=== PATIENT | male | born 1965 | race Caucasian/White ===

== ENCOUNTER 2020-10-28 17:00 | Inpatient (IN) | payer OTHER ==
[2020-10-28 18:03] VITALS: BMI 23.5
[2020-10-28] MEDS ORDERED: ACETAMINOPHEN 325 MG TABLET (FP) PO PRN ×2 (18:43)
[2020-10-28] MEDS ORDERED: BISMUTH SUBSALICYLATE 524 MG/30 ML PO PRN (18:43)
[2020-10-28] MEDS ORDERED: ONDANSETRON *ODT* 4 MG TABLET SL PRN (18:43)
[2020-10-28] MEDS ORDERED: MAGNESIUM HYDROX 2400MG/30ML ORAL SUSPENSION 30 ML CUP PO PRN (18:43)
[2020-10-28] MEDS ORDERED: MENTHOL/PHENOL 1 EACH UD MM PRN (18:43)
[2020-10-28] MEDS ORDERED: MAGNESIUM CITRATE 300 ML BOTTLE PO PRN (18:43)
[2020-10-28] MEDS ORDERED: MAG HYDROX/AL HYDROX/SIMETH 30 ML UNIT-DOSE CUP PO PRN (18:43)
[2020-10-28] MEDS ORDERED: diazePAM 5 MG TABLET PO ONE (18:46)
[2020-10-28] MEDS: SULFAMETHOXAZOLE/TRIMETHOPRIM 800MG/160MG D.S. TABLET PO SCH (21:20)
[2020-10-28] MEDS: hydrOXYzine PAMOATE 25 MG CAPSULE (FP) PO PRN (21:20)
[2020-10-28] MEDS: IBUPROFEN 400 MG TABLET (FP) PO PRN (21:20)
[2020-10-28] MEDS: CEPHALEXIN MONOHYDRATE 500 MG CAPSULE (UD) PO SCH (21:20)
[2020-10-28] MEDS: METHOCARBAMOL 500 MG TABLET PO PRN (21:20)
[2020-10-28] MEDS: MELATONIN 5 MG TABLETS PO SCH (21:24)
[2020-10-28] MEDS: THIAMINE HCL 100 MG TABLET (FP) PO SCH (21:24)
[2020-10-28] MEDS: diazePAM 5 MG TABLET PO SCH (22:39)
[2020-10-29] MEDS: diazePAM 5 MG TABLET PO SCH ×4 (07:05→22:27)
[2020-10-29] MEDS: PRENATAL VITAMINS W/ FOLIC ACID TABLET (FP) PO SCH (10:25)
[2020-10-29] MEDS: SULFAMETHOXAZOLE/TRIMETHOPRIM 800MG/160MG D.S. TABLET PO SCH ×2 (10:25→22:26)
[2020-10-29] MEDS: amLODIPine BESYLATE 5 MG TABLET (FP) PO SCH (10:25)
[2020-10-29] MEDS: CEPHALEXIN MONOHYDRATE 500 MG CAPSULE (UD) PO SCH ×4 (10:26→22:26)
[2020-10-29] MEDS: ESCITALOPRAM OXALATE 10 MG TABLET PO SCH (10:27)
[2020-10-29] MEDS: IBUPROFEN 400 MG TABLET (FP) PO PRN ×2 (10:30→22:26)
[2020-10-29 10:44] LABS: HEMOGLOBIN 14.5 GM/dL (11.7-16.9); MCH 31.7 pg (25.7-33.7); MCHC 34.6 g/dl (32.0-35.9); MEAN CELL VOLUME 91.6 fl (80-96); MEAN PLT VOLUME 8.4 fl (7.5-11.1); PLATELET COUNT 322 10^3/uL (134-434); RBC 4.59 M/mm3 (4.00-5.60); RDW 14.4 % (11.9-15.9); WHITE BLOOD COUNT 9.2 K/mm3 (4.0-10.0)
[2020-10-29 10:58] LABS: ALBUMIN 3.4 g/dl (3.4-5.0); BLOOD UREA NITROGEN 12.5 mg/dL (7-18); CALCIUM 9.1 mg/dL (8.5-10.1)
[2020-10-29 11:01] LABS: BILIRUBIN,TOTAL 0.2 mg/dL (0.2-1); TOT PROT 6.2 g/dl (6.4-8.2)
[2020-10-29 11:02] LABS: CREATININE 0.9 mg/dL (0.55-1.3)
[2020-10-29] MEDS: NICOTINE 10 MG CARTRIDGE (INHALER) IH SCH (19:38)
[2020-10-29] MEDS: MELATONIN 5 MG TABLETS PO SCH (22:26)
[2020-10-29] MEDS: THIAMINE HCL 100 MG TABLET (FP) PO SCH (22:27)
[2020-10-29] MEDS: METHOCARBAMOL 500 MG TABLET PO PRN (22:28)
[2020-10-29] MEDS: hydrOXYzine PAMOATE 25 MG CAPSULE (FP) PO PRN (22:28)
[2020-10-30] MEDS: diazePAM 5 MG TABLET PO SCH ×3 (06:42→23:10)
[2020-10-30] MEDS: SULFAMETHOXAZOLE/TRIMETHOPRIM 800MG/160MG D.S. TABLET PO SCH ×2 (10:17→23:10)
[2020-10-30] MEDS: CEPHALEXIN MONOHYDRATE 500 MG CAPSULE (UD) PO SCH ×4 (10:17→23:10)
[2020-10-30] MEDS: NICOTINE 10 MG CARTRIDGE (INHALER) IH SCH (10:17)
[2020-10-30] MEDS: ESCITALOPRAM OXALATE 10 MG TABLET PO SCH (10:17)
[2020-10-30] MEDS: amLODIPine BESYLATE 5 MG TABLET (FP) PO SCH (10:17)
[2020-10-30] MEDS: PRENATAL VITAMINS W/ FOLIC ACID TABLET (FP) PO SCH (10:17)
[2020-10-30] MEDS: diazePAM 5 MG TABLET PO PRN (10:18)
[2020-10-30] MEDS: IBUPROFEN 400 MG TABLET (FP) PO PRN (17:40)
[2020-10-30] MEDS: METHOCARBAMOL 500 MG TABLET PO PRN (17:41)
[2020-10-30] MEDS: hydrOXYzine PAMOATE 25 MG CAPSULE (FP) PO PRN (17:42)
[2020-10-30] MEDS ORDERED: ALBUTEROL SO4 HFA INHALER IH PRN (19:38)
[2020-10-30] MEDS ORDERED: NICOTINE POLACRILEX 2 MG GUM BUC PRN (19:38)
[2020-10-30] MEDS: LIDOCAINE 5% TOPICAL PATCH TP SCH (20:07)
[2020-10-30] MEDS: NICOTINE 14 MG/24 HOURS TOPICAL PATCH TD SCH (22:02)
[2020-10-30] MEDS: MELATONIN 5 MG TABLETS PO SCH (23:10)
[2020-10-30] MEDS: CYCLOBENZAPRINE HCL 10 MG TABLET (FP) PO SCH (23:10)
[2020-10-30] MEDS: THIAMINE HCL 100 MG TABLET (FP) PO SCH (23:10)
[2020-10-30] MEDS: LIDOCAINE PATCH REMOVAL MC SCH (23:10)
[2020-10-31] MEDS: CYCLOBENZAPRINE HCL 10 MG TABLET (FP) PO SCH ×3 (05:57→22:20)
[2020-10-31] MEDS: diazePAM 5 MG TABLET PO SCH ×2 (05:57→17:35)
[2020-10-31] MEDS: SULFAMETHOXAZOLE/TRIMETHOPRIM 800MG/160MG D.S. TABLET PO SCH ×2 (10:29→22:20)
[2020-10-31] MEDS: PRENATAL VITAMINS W/ FOLIC ACID TABLET (FP) PO SCH (10:29)
[2020-10-31] MEDS: CEPHALEXIN MONOHYDRATE 500 MG CAPSULE (UD) PO SCH ×4 (10:29→22:20)
[2020-10-31] MEDS ORDERED: NAPROXEN 250 MG TABLET PO PRN (10:29)
[2020-10-31] MEDS: amLODIPine BESYLATE 5 MG TABLET (FP) PO SCH (10:29)
[2020-10-31] MEDS: ESCITALOPRAM OXALATE 10 MG TABLET PO SCH (10:29)
[2020-10-31] MEDS: LIDOCAINE 5% TOPICAL PATCH TP SCH (10:30)
[2020-10-31] MEDS: diazePAM 5 MG TABLET PO PRN (10:33)
[2020-10-31] MEDS: hydrOXYzine PAMOATE 25 MG CAPSULE (FP) PO PRN ×3 (10:34→22:20)
[2020-10-31] MEDS: NICOTINE 14 MG/24 HOURS TOPICAL PATCH TD SCH (11:36)
[2020-10-31] MEDS: THIAMINE HCL 100 MG TABLET (FP) PO SCH (22:20)
[2020-10-31] MEDS: MELATONIN 5 MG TABLETS PO SCH (22:56)
[2020-10-31] MEDS: LIDOCAINE PATCH REMOVAL MC SCH (22:57)
[2020-11-01] MEDS ORDERED: diazePAM 5 MG TABLET PO ONE (06:00)
[2020-11-01] MEDS: CYCLOBENZAPRINE HCL 10 MG TABLET (FP) PO SCH (07:07)
[2020-11-01] MEDS: ESCITALOPRAM OXALATE 10 MG TABLET PO SCH (10:17)
[2020-11-01] MEDS: PRENATAL VITAMINS W/ FOLIC ACID TABLET (FP) PO SCH (10:17)
[2020-11-01] MEDS: amLODIPine BESYLATE 5 MG TABLET (FP) PO SCH (10:17)
[2020-11-01] MEDS: LIDOCAINE 5% TOPICAL PATCH TP SCH (10:17)
[2020-11-01] MEDS: CEPHALEXIN MONOHYDRATE 500 MG CAPSULE (UD) PO SCH (10:17)
[2020-11-01] MEDS: SULFAMETHOXAZOLE/TRIMETHOPRIM 800MG/160MG D.S. TABLET PO SCH (10:17)
[2020-11-01] MEDS: NICOTINE 14 MG/24 HOURS TOPICAL PATCH TD SCH (10:19)
[2020-11-01] MEDS: hydrOXYzine PAMOATE 25 MG CAPSULE (FP) PO PRN (10:20)
[2020-11-01 10:39] VITALS: BP 121/76; PULSE 80; TEMP 98
== END 2020-11-01 12:28 | disposition other institution (70) | DRG 774 ==
LOC: YASAS 17:00 → Y3N 18:54
PROVIDERS: ADMIT Allergy & Immunology; ATTEND Allergy & Immunology
PROC: HZ2ZZZZ Detoxification Services for Substance Abuse Treatment (ICD-10-PCS; principal; 2020-10-28)
DX: F10.230 Alcohol dependence with withdrawal, uncomplicated (principal); F14.20 Cocaine dependence, uncomplicated; F13.20 Sedative, hypnotic or anxiolytic dependence, uncomplicated; F17.210 Nicotine dependence, cigarettes, uncomplicated; F19.24 Other psychoactive substance dependence with psychoactive substance-induced mood disorder; F32.9 Major depressive disorder, single episode, unspecified; I10 Essential (primary) hypertension; M54.5 Low back pain; G89.29 Other chronic pain; Z56.0 Unemployment, unspecified; Z59.0 Homelessness
CPT/HCPCS: 36415; 80053; 85027; 86780; C9803; U0003; U0005

== ENCOUNTER 2020-11-01 12:36 | Inpatient (IN) | payer OTHER ==
[2020-11-01] MEDS ORDERED: P-EPHED 60MG/TRIPROLIDI 2.5MG TABLET PO PRN (14:09)
[2020-11-01] MEDS ORDERED: MAGNESIUM HYDROX 2400MG/30ML ORAL SUSPENSION 30 ML CUP PO PRN (14:09)
[2020-11-01] MEDS ORDERED: LOPERAMIDE HCL 2 MG CAPSULE PO PRN (14:09)
[2020-11-01] MEDS ORDERED: guaiFENesin 200 MG/10 ML 10 ML UNIT-DOSE CUPS PO PRN (14:09)
[2020-11-01] MEDS ORDERED: MENTHOL/PHENOL 1 EACH UD MM PRN (14:09)
[2020-11-01] MEDS ORDERED: MAGNESIUM CITRATE 300 ML BOTTLE PO PRN (14:09)
[2020-11-01] MEDS: NICOTINE 10 MG CARTRIDGE (INHALER) IH PRN (14:30)
[2020-11-01] MEDS: ACETAMINOPHEN 325 MG TABLET (FP) PO PRN (15:56)
[2020-11-01] MEDS: hydrOXYzine PAMOATE 25 MG CAPSULE (FP) PO PRN (15:58)
[2020-11-01] MEDS: NAPROXEN 250 MG TABLET PO PRN (21:16)
[2020-11-01] MEDS: MELATONIN 5 MG TABLETS PO SCH (21:17)
[2020-11-01] MEDS: LIDOCAINE PATCH REMOVAL MC SCH (21:18)
[2020-11-01] MEDS: THIAMINE HCL 100 MG TABLET (FP) PO SCH (21:18)
[2020-11-01] MEDS ORDERED: PT OWN MED DRAWER 7, Y5N ONE (21:33)
[2020-11-01] MEDS: ALBUTEROL SO4 HFA INHALER IH PRN (22:41)
[2020-11-02] MEDS: NAPROXEN 250 MG TABLET PO PRN ×3 (01:59→21:36)
[2020-11-02] MEDS: ESCITALOPRAM OXALATE 10 MG TABLET PO SCH (09:54)
[2020-11-02] MEDS: hydrOXYzine PAMOATE 25 MG CAPSULE (FP) PO PRN ×2 (09:54→19:12)
[2020-11-02] MEDS: amLODIPine BESYLATE 5 MG TABLET (FP) PO SCH (09:54)
[2020-11-02] MEDS: ALBUTEROL SO4 HFA INHALER IH PRN (09:55)
[2020-11-02] MEDS: NICOTINE 10 MG CARTRIDGE (INHALER) IH PRN (09:55)
[2020-11-02] MEDS: NICOTINE 21 MG/24 HOURS TOPICAL PATCH TD SCH (09:56)
[2020-11-02] MEDS: LIDOCAINE 5% TOPICAL PATCH TP SCH (10:06)
[2020-11-02] MEDS: PRENATAL VITAMINS W/ FOLIC ACID TABLET (FP) PO SCH (10:07)
[2020-11-02] MEDS: ACETAMINOPHEN 325 MG TABLET (FP) PO PRN (12:48)
[2020-11-02] MEDS: CYCLOBENZAPRINE HCL 5 MG TABLET PO PRN (14:44)
[2020-11-02] MEDS: MELATONIN 5 MG TABLETS PO SCH (21:33)
[2020-11-02] MEDS: THIAMINE HCL 100 MG TABLET (FP) PO SCH (21:34)
[2020-11-02] MEDS ORDERED: PT OWN MED DRAWER 7, Y5N ONE (21:36)
[2020-11-02] MEDS: LIDOCAINE PATCH REMOVAL MC SCH (21:37)
[2020-11-03] MEDS ORDERED: PT OWN MED DRAWER 7, Y5N ONE ×3 (08:51→21:13)
[2020-11-03] MEDS: PRENATAL VITAMINS W/ FOLIC ACID TABLET (FP) PO SCH (10:02)
[2020-11-03] MEDS: NAPROXEN 250 MG TABLET PO PRN (10:02)
[2020-11-03] MEDS: ESCITALOPRAM OXALATE 10 MG TABLET PO SCH (10:02)
[2020-11-03] MEDS: CYCLOBENZAPRINE HCL 5 MG TABLET PO PRN ×2 (10:02→21:13)
[2020-11-03] MEDS: amLODIPine BESYLATE 5 MG TABLET (FP) PO SCH (10:03)
[2020-11-03] MEDS: NICOTINE 21 MG/24 HOURS TOPICAL PATCH TD SCH (10:04)
[2020-11-03] MEDS: LIDOCAINE 5% TOPICAL PATCH TP SCH (10:04)
[2020-11-03] MEDS: NICOTINE 10 MG CARTRIDGE (INHALER) IH PRN (10:06)
[2020-11-03] MEDS: GABAPENTIN 300 MG CAPSULE PO SCH ×2 (14:11→21:08)
[2020-11-03] MEDS: CEPHALEXIN MONOHYDRATE 500 MG CAPSULE (UD) PO SCH ×3 (14:11→23:41)
[2020-11-03] MEDS: ACETAMINOPHEN 325 MG TABLET (FP) PO PRN (15:55)
[2020-11-03] MEDS: THIAMINE HCL 100 MG TABLET (FP) PO SCH (21:08)
[2020-11-03] MEDS: MELATONIN 5 MG TABLETS PO SCH (21:08)
[2020-11-03] MEDS: hydrOXYzine PAMOATE 25 MG CAPSULE (FP) PO PRN (21:09)
[2020-11-03] MEDS: LIDOCAINE PATCH REMOVAL MC SCH (21:14)
[2020-11-04] MEDS: CEPHALEXIN MONOHYDRATE 500 MG CAPSULE (UD) PO SCH ×4 (06:32→23:10)
[2020-11-04] MEDS: GABAPENTIN 300 MG CAPSULE PO SCH ×3 (06:32→21:37)
[2020-11-04] MEDS: CYCLOBENZAPRINE HCL 5 MG TABLET PO PRN ×4 (06:54→21:37)
[2020-11-04] MEDS: NICOTINE 21 MG/24 HOURS TOPICAL PATCH TD SCH (10:17)
[2020-11-04] MEDS: amLODIPine BESYLATE 5 MG TABLET (FP) PO SCH (10:17)
[2020-11-04] MEDS: ESCITALOPRAM OXALATE 10 MG TABLET PO SCH (10:17)
[2020-11-04] MEDS: NAPROXEN 250 MG TABLET PO PRN (10:17)
[2020-11-04] MEDS: PRENATAL VITAMINS W/ FOLIC ACID TABLET (FP) PO SCH (10:17)
[2020-11-04] MEDS: NICOTINE 10 MG CARTRIDGE (INHALER) IH PRN ×2 (10:18→18:41)
[2020-11-04] MEDS: LIDOCAINE 5% TOPICAL PATCH TP SCH ×2 (10:19→10:55)
[2020-11-04] MEDS: MELATONIN 5 MG TABLETS PO SCH (21:37)
[2020-11-04] MEDS: THIAMINE HCL 100 MG TABLET (FP) PO SCH (21:37)
[2020-11-04] MEDS: ALBUTEROL SO4 HFA INHALER IH PRN (21:38)
[2020-11-04] MEDS: LIDOCAINE PATCH REMOVAL MC SCH (21:38)
[2020-11-04] MEDS: SUVOREXANT 10 MG TABLET PO PRN (21:38)
[2020-11-05] MEDS: GABAPENTIN 300 MG CAPSULE PO SCH ×3 (06:41→21:04)
[2020-11-05] MEDS: CYCLOBENZAPRINE HCL 5 MG TABLET PO PRN ×2 (06:41→21:05)
[2020-11-05] MEDS: CEPHALEXIN MONOHYDRATE 500 MG CAPSULE (UD) PO SCH (06:41)
[2020-11-05] MEDS: ESCITALOPRAM OXALATE 10 MG TABLET PO SCH (10:02)
[2020-11-05] MEDS: LIDOCAINE 5% TOPICAL PATCH TP SCH (10:02)
[2020-11-05] MEDS: amLODIPine BESYLATE 5 MG TABLET (FP) PO SCH (10:02)
[2020-11-05] MEDS: PRENATAL VITAMINS W/ FOLIC ACID TABLET (FP) PO SCH (10:02)
[2020-11-05] MEDS: NICOTINE 21 MG/24 HOURS TOPICAL PATCH TD SCH (10:02)
[2020-11-05] MEDS: NAPROXEN 250 MG TABLET PO PRN (10:04)
[2020-11-05] MEDS ORDERED: PT OWN MED DRAWER 7, Y5N ONE ×2 (10:04→14:08)
[2020-11-05] MEDS: IBUPROFEN 600 MG TABLET (FP) PO PRN ×2 (12:04→21:06)
[2020-11-05] MEDS: ALBUTEROL SO4 HFA INHALER IH PRN ×2 (14:09→21:32)
[2020-11-05] MEDS: THIAMINE HCL 100 MG TABLET (FP) PO SCH (21:04)
[2020-11-05] MEDS: MELATONIN 5 MG TABLETS PO SCH (21:04)
[2020-11-05] MEDS: SUVOREXANT 10 MG TABLET PO PRN (21:05)
[2020-11-05] MEDS: LIDOCAINE PATCH REMOVAL MC SCH (21:06)
[2020-11-06] MEDS: CYCLOBENZAPRINE HCL 5 MG TABLET PO PRN ×4 (06:24→21:24)
[2020-11-06] MEDS: GABAPENTIN 300 MG CAPSULE PO SCH ×3 (06:24→21:24)
[2020-11-06] MEDS: ESCITALOPRAM OXALATE 10 MG TABLET PO SCH (10:43)
[2020-11-06] MEDS: LIDOCAINE 5% TOPICAL PATCH TP SCH (10:43)
[2020-11-06] MEDS: ALBUTEROL SO4 HFA INHALER IH PRN ×2 (10:44→21:25)
[2020-11-06] MEDS: NICOTINE 21 MG/24 HOURS TOPICAL PATCH TD SCH (10:44)
[2020-11-06] MEDS: amLODIPine BESYLATE 5 MG TABLET (FP) PO SCH (10:44)
[2020-11-06] MEDS: PRENATAL VITAMINS W/ FOLIC ACID TABLET (FP) PO SCH (10:44)
[2020-11-06] MEDS: IBUPROFEN 600 MG TABLET (FP) PO PRN (10:47)
[2020-11-06] MEDS: ACETAMINOPHEN 325 MG TABLET (FP) PO PRN (13:45)
[2020-11-06] MEDS: NICOTINE 10 MG CARTRIDGE (INHALER) IH PRN (13:50)
[2020-11-06] MEDS: MELATONIN 5 MG TABLETS PO SCH (21:24)
[2020-11-06] MEDS: THIAMINE HCL 100 MG TABLET (FP) PO SCH (21:24)
[2020-11-06] MEDS: LIDOCAINE PATCH REMOVAL MC SCH (21:25)
[2020-11-06] MEDS: SUVOREXANT 10 MG TABLET PO PRN (21:32)
[2020-11-07] MEDS: GABAPENTIN 300 MG CAPSULE PO SCH ×3 (06:30→21:12)
[2020-11-07] MEDS ORDERED: PT OWN MED DRAWER 7, Y5N ONE (08:57)
[2020-11-07] MEDS: ESCITALOPRAM OXALATE 10 MG TABLET PO SCH (09:38)
[2020-11-07] MEDS: PRENATAL VITAMINS W/ FOLIC ACID TABLET (FP) PO SCH (09:38)
[2020-11-07] MEDS: amLODIPine BESYLATE 5 MG TABLET (FP) PO SCH (09:38)
[2020-11-07] MEDS: IBUPROFEN 600 MG TABLET (FP) PO PRN (09:40)
[2020-11-07] MEDS: LIDOCAINE 5% TOPICAL PATCH TP SCH (09:41)
[2020-11-07] MEDS: ALBUTEROL SO4 HFA INHALER IH PRN ×2 (09:42→14:15)
[2020-11-07] MEDS: NICOTINE 21 MG/24 HOURS TOPICAL PATCH TD SCH (09:42)
[2020-11-07] MEDS: NICOTINE 10 MG CARTRIDGE (INHALER) IH PRN (11:16)
[2020-11-07] MEDS: CYCLOBENZAPRINE HCL 5 MG TABLET PO PRN (14:15)
[2020-11-07] MEDS: hydrOXYzine PAMOATE 25 MG CAPSULE (FP) PO PRN (15:44)
[2020-11-07] MEDS: MAG HYDROX/AL HYDROX/SIMETH 30 ML UNIT-DOSE CUP PO PRN (20:50)
[2020-11-07] MEDS: MELATONIN 5 MG TABLETS PO SCH (21:12)
[2020-11-07] MEDS: THIAMINE HCL 100 MG TABLET (FP) PO SCH (21:12)
[2020-11-07] MEDS: SUVOREXANT 10 MG TABLET PO PRN (21:13)
[2020-11-07] MEDS: LIDOCAINE PATCH REMOVAL MC SCH (21:13)
[2020-11-08] MEDS: GABAPENTIN 300 MG CAPSULE PO SCH ×3 (06:21→21:25)
[2020-11-08] MEDS: CYCLOBENZAPRINE HCL 5 MG TABLET PO PRN ×2 (06:21→17:40)
[2020-11-08] MEDS: ESCITALOPRAM OXALATE 10 MG TABLET PO SCH (10:09)
[2020-11-08] MEDS: NICOTINE 21 MG/24 HOURS TOPICAL PATCH TD SCH (10:09)
[2020-11-08] MEDS: amLODIPine BESYLATE 5 MG TABLET (FP) PO SCH (10:09)
[2020-11-08] MEDS: LIDOCAINE 5% TOPICAL PATCH TP SCH (10:09)
[2020-11-08] MEDS: PRENATAL VITAMINS W/ FOLIC ACID TABLET (FP) PO SCH (10:09)
[2020-11-08] MEDS: IBUPROFEN 600 MG TABLET (FP) PO PRN ×2 (10:10→21:27)
[2020-11-08] MEDS: ALBUTEROL SO4 HFA INHALER IH PRN ×2 (10:11→17:41)
[2020-11-08] MEDS: NICOTINE 10 MG CARTRIDGE (INHALER) IH PRN (13:13)
[2020-11-08] MEDS: MAG HYDROX/AL HYDROX/SIMETH 30 ML UNIT-DOSE CUP PO PRN ×2 (14:45→19:50)
[2020-11-08] MEDS: ACETAMINOPHEN 325 MG TABLET (FP) PO PRN (17:40)
[2020-11-08] MEDS: THIAMINE HCL 100 MG TABLET (FP) PO SCH (21:25)
[2020-11-08] MEDS: MELATONIN 5 MG TABLETS PO SCH (21:25)
[2020-11-08] MEDS: LIDOCAINE PATCH REMOVAL MC SCH (21:26)
[2020-11-08] MEDS: SUVOREXANT 10 MG TABLET PO PRN (21:27)
[2020-11-09] MEDS: GABAPENTIN 300 MG CAPSULE PO SCH ×3 (06:57→21:17)
[2020-11-09] MEDS: CYCLOBENZAPRINE HCL 5 MG TABLET PO PRN ×2 (06:57→13:37)
[2020-11-09] MEDS: LIDOCAINE 5% TOPICAL PATCH TP SCH (10:02)
[2020-11-09] MEDS: NICOTINE 21 MG/24 HOURS TOPICAL PATCH TD SCH (10:03)
[2020-11-09] MEDS: ALBUTEROL SO4 HFA INHALER IH PRN ×3 (10:04→21:15)
[2020-11-09] MEDS: IBUPROFEN 600 MG TABLET (FP) PO PRN (10:05)
[2020-11-09] MEDS: ESCITALOPRAM OXALATE 10 MG TABLET PO SCH (10:05)
[2020-11-09] MEDS: PRENATAL VITAMINS W/ FOLIC ACID TABLET (FP) PO SCH (10:05)
[2020-11-09] MEDS: amLODIPine BESYLATE 5 MG TABLET (FP) PO SCH (10:05)
[2020-11-09] MEDS: MELATONIN 5 MG TABLETS PO SCH (21:17)
[2020-11-09] MEDS: THIAMINE HCL 100 MG TABLET (FP) PO SCH (21:17)
[2020-11-09] MEDS: LIDOCAINE PATCH REMOVAL MC SCH (21:18)
[2020-11-09] MEDS: SUVOREXANT 10 MG TABLET PO PRN (21:19)
[2020-11-10] MEDS: GABAPENTIN 300 MG CAPSULE PO SCH ×3 (06:35→21:32)
[2020-11-10] MEDS: CYCLOBENZAPRINE HCL 5 MG TABLET PO PRN ×3 (06:35→21:33)
[2020-11-10] MEDS: PRENATAL VITAMINS W/ FOLIC ACID TABLET (FP) PO SCH (10:19)
[2020-11-10] MEDS: amLODIPine BESYLATE 5 MG TABLET (FP) PO SCH (10:19)
[2020-11-10] MEDS: ESCITALOPRAM OXALATE 10 MG TABLET PO SCH (10:19)
[2020-11-10] MEDS: NICOTINE 21 MG/24 HOURS TOPICAL PATCH TD SCH (10:21)
[2020-11-10] MEDS: LIDOCAINE 5% TOPICAL PATCH TP SCH (10:21)
[2020-11-10] MEDS: NICOTINE 10 MG CARTRIDGE (INHALER) IH PRN (10:45)
[2020-11-10] MEDS: FLUTICASONE PROP 0.05% 16 GM NASAL SPRAY NS SCH (13:55)
[2020-11-10] MEDS: ALBUTEROL SO4 HFA INHALER IH PRN (17:31)
[2020-11-10] MEDS ORDERED: amLODIPine BESYLATE 5 MG TABLET (FP) PO SCH (18:00)
[2020-11-10] MEDS: THIAMINE HCL 100 MG TABLET (FP) PO SCH (21:31)
[2020-11-10] MEDS: MELATONIN 5 MG TABLETS PO SCH (21:31)
[2020-11-10] MEDS: SUVOREXANT 10 MG TABLET PO PRN (21:33)
[2020-11-10] MEDS: LIDOCAINE PATCH REMOVAL MC SCH (21:34)
[2020-11-11] MEDS: GABAPENTIN 300 MG CAPSULE PO SCH ×3 (06:40→21:10)
[2020-11-11] MEDS: PRENATAL VITAMINS W/ FOLIC ACID TABLET (FP) PO SCH (09:49)
[2020-11-11] MEDS: ESCITALOPRAM OXALATE 10 MG TABLET PO SCH (09:49)
[2020-11-11] MEDS: FLUTICASONE PROP 0.05% 16 GM NASAL SPRAY NS SCH (09:52)
[2020-11-11] MEDS: CYCLOBENZAPRINE HCL 5 MG TABLET PO PRN ×2 (09:52→13:43)
[2020-11-11] MEDS: ALBUTEROL SO4 HFA INHALER IH PRN ×2 (09:52→13:43)
[2020-11-11] MEDS ORDERED: amLODIPine BESYLATE 5 MG TABLET (FP) PO SCH (10:00)
[2020-11-11] MEDS: NICOTINE 21 MG/24 HOURS TOPICAL PATCH TD SCH (10:19)
[2020-11-11] MEDS: LIDOCAINE 5% TOPICAL PATCH TP SCH (10:21)
[2020-11-11] MEDS: IBUPROFEN 600 MG TABLET (FP) PO PRN (17:13)
[2020-11-11] MEDS: MELATONIN 5 MG TABLETS PO SCH (21:10)
[2020-11-11] MEDS: THIAMINE HCL 100 MG TABLET (FP) PO SCH (21:11)
[2020-11-11] MEDS: LIDOCAINE PATCH REMOVAL MC SCH (21:11)
[2020-11-11] MEDS: SUVOREXANT 10 MG TABLET PO PRN (21:12)
[2020-11-11] MEDS: NICOTINE 10 MG CARTRIDGE (INHALER) IH PRN (21:13)
[2020-11-11] MEDS: hydrOXYzine PAMOATE 25 MG CAPSULE (FP) PO PRN (21:13)
[2020-11-12] MEDS: GABAPENTIN 300 MG CAPSULE PO SCH ×3 (06:16→21:30)
[2020-11-12] MEDS: NICOTINE 21 MG/24 HOURS TOPICAL PATCH TD SCH (10:26)
[2020-11-12] MEDS: PRENATAL VITAMINS W/ FOLIC ACID TABLET (FP) PO SCH (10:26)
[2020-11-12] MEDS: amLODIPine BESYLATE 5 MG TABLET (FP) PO SCH ×2 (10:26→21:31)
[2020-11-12] MEDS: ESCITALOPRAM OXALATE 10 MG TABLET PO SCH (10:26)
[2020-11-12] MEDS: LIDOCAINE 5% TOPICAL PATCH TP SCH (10:26)
[2020-11-12] MEDS: hydrOXYzine PAMOATE 25 MG CAPSULE (FP) PO PRN (10:28)
[2020-11-12] MEDS: NICOTINE 10 MG CARTRIDGE (INHALER) IH PRN (10:28)
[2020-11-12] MEDS: ALBUTEROL SO4 HFA INHALER IH PRN ×2 (10:28→14:03)
[2020-11-12] MEDS: FLUTICASONE PROP 0.05% 16 GM NASAL SPRAY NS SCH (10:28)
[2020-11-12] MEDS: CYCLOBENZAPRINE HCL 5 MG TABLET PO PRN ×2 (14:01→21:30)
[2020-11-12] MEDS: IBUPROFEN 600 MG TABLET (FP) PO PRN (17:41)
[2020-11-12] MEDS: SUVOREXANT 10 MG TABLET PO PRN (21:31)
[2020-11-12] MEDS: LIDOCAINE PATCH REMOVAL MC SCH (21:32)
[2020-11-12] MEDS: MELATONIN 5 MG TABLETS PO SCH (21:32)
[2020-11-12] MEDS: THIAMINE HCL 100 MG TABLET (FP) PO SCH (21:32)
[2020-11-13] MEDS: GABAPENTIN 300 MG CAPSULE PO SCH ×3 (06:22→21:13)
[2020-11-13] MEDS: LIDOCAINE 5% TOPICAL PATCH TP SCH (09:47)
[2020-11-13] MEDS: FLUTICASONE PROP 0.05% 16 GM NASAL SPRAY NS SCH (09:47)
[2020-11-13] MEDS: ESCITALOPRAM OXALATE 10 MG TABLET PO SCH (09:47)
[2020-11-13] MEDS: PRENATAL VITAMINS W/ FOLIC ACID TABLET (FP) PO SCH (09:47)
[2020-11-13] MEDS: NICOTINE 21 MG/24 HOURS TOPICAL PATCH TD SCH (09:47)
[2020-11-13] MEDS: ALBUTEROL SO4 HFA INHALER IH PRN (09:47)
[2020-11-13] MEDS: amLODIPine BESYLATE 5 MG TABLET (FP) PO SCH ×2 (09:47→21:13)
[2020-11-13] MEDS: hydrOXYzine PAMOATE 25 MG CAPSULE (FP) PO PRN (09:48)
[2020-11-13] MEDS: CYCLOBENZAPRINE HCL 5 MG TABLET PO PRN ×2 (09:48→21:15)
[2020-11-13] MEDS: IBUPROFEN 600 MG TABLET (FP) PO PRN (12:34)
[2020-11-13] MEDS: NICOTINE 10 MG CARTRIDGE (INHALER) IH PRN (18:20)
[2020-11-13] MEDS: THIAMINE HCL 100 MG TABLET (FP) PO SCH (21:14)
[2020-11-13] MEDS: SUVOREXANT 10 MG TABLET PO PRN (21:15)
[2020-11-13] MEDS: LIDOCAINE PATCH REMOVAL MC SCH (21:16)
[2020-11-13] MEDS: MELATONIN 5 MG TABLETS PO SCH (21:16)
[2020-11-14] MEDS: GABAPENTIN 300 MG CAPSULE PO SCH ×3 (07:10→21:42)
[2020-11-14] MEDS: amLODIPine BESYLATE 5 MG TABLET (FP) PO SCH ×2 (10:24→21:42)
[2020-11-14] MEDS: ESCITALOPRAM OXALATE 10 MG TABLET PO SCH (10:24)
[2020-11-14] MEDS: NICOTINE 21 MG/24 HOURS TOPICAL PATCH TD SCH (10:24)
[2020-11-14] MEDS: LIDOCAINE 5% TOPICAL PATCH TP SCH (10:24)
[2020-11-14] MEDS: FLUTICASONE PROP 0.05% 16 GM NASAL SPRAY NS SCH (10:25)
[2020-11-14] MEDS: PRENATAL VITAMINS W/ FOLIC ACID TABLET (FP) PO SCH (10:25)
[2020-11-14] MEDS: IBUPROFEN 600 MG TABLET (FP) PO PRN ×2 (10:26→16:38)
[2020-11-14] MEDS: ALBUTEROL SO4 HFA INHALER IH PRN (10:27)
[2020-11-14] MEDS: CYCLOBENZAPRINE HCL 5 MG TABLET PO PRN (14:12)
[2020-11-14] MEDS: SUVOREXANT 10 MG TABLET PO PRN (21:42)
[2020-11-14] MEDS: MELATONIN 5 MG TABLETS PO SCH (21:43)
[2020-11-14] MEDS: LIDOCAINE PATCH REMOVAL MC SCH (22:36)
[2020-11-14] MEDS: THIAMINE HCL 100 MG TABLET (FP) PO SCH (22:36)
[2020-11-15] MEDS: GABAPENTIN 300 MG CAPSULE PO SCH ×3 (06:53→21:06)
[2020-11-15] MEDS: IBUPROFEN 600 MG TABLET (FP) PO PRN (06:55)
[2020-11-15] MEDS: ALBUTEROL SO4 HFA INHALER IH PRN ×2 (06:55→14:03)
[2020-11-15] MEDS: PRENATAL VITAMINS W/ FOLIC ACID TABLET (FP) PO SCH (09:38)
[2020-11-15] MEDS: ESCITALOPRAM OXALATE 10 MG TABLET PO SCH (09:39)
[2020-11-15] MEDS: FLUTICASONE PROP 0.05% 16 GM NASAL SPRAY NS SCH (09:39)
[2020-11-15] MEDS: LIDOCAINE 5% TOPICAL PATCH TP SCH (09:39)
[2020-11-15] MEDS: NICOTINE 21 MG/24 HOURS TOPICAL PATCH TD SCH (09:39)
[2020-11-15] MEDS: amLODIPine BESYLATE 5 MG TABLET (FP) PO SCH ×2 (09:39→21:06)
[2020-11-15] MEDS: hydrOXYzine PAMOATE 25 MG CAPSULE (FP) PO PRN ×2 (09:41→18:07)
[2020-11-15] MEDS: CYCLOBENZAPRINE HCL 5 MG TABLET PO PRN (14:03)
[2020-11-15] MEDS: THIAMINE HCL 100 MG TABLET (FP) PO SCH (21:06)
[2020-11-15] MEDS: SUVOREXANT 10 MG TABLET PO PRN (21:07)
[2020-11-15] MEDS: MELATONIN 5 MG TABLETS PO SCH (21:07)
[2020-11-15] MEDS: LIDOCAINE PATCH REMOVAL MC SCH (21:07)
[2020-11-16] MEDS: GABAPENTIN 300 MG CAPSULE PO SCH ×3 (06:15→21:33)
[2020-11-16] MEDS: IBUPROFEN 600 MG TABLET (FP) PO PRN (06:15)
[2020-11-16] MEDS: hydrOXYzine PAMOATE 25 MG CAPSULE (FP) PO PRN ×2 (06:16→19:05)
[2020-11-16] MEDS: PRENATAL VITAMINS W/ FOLIC ACID TABLET (FP) PO SCH (10:05)
[2020-11-16] MEDS: FLUTICASONE PROP 0.05% 16 GM NASAL SPRAY NS SCH (10:05)
[2020-11-16] MEDS: ESCITALOPRAM OXALATE 10 MG TABLET PO SCH (10:06)
[2020-11-16] MEDS: LIDOCAINE 5% TOPICAL PATCH TP SCH (10:06)
[2020-11-16] MEDS: ALBUTEROL SO4 HFA INHALER IH PRN (10:06)
[2020-11-16] MEDS: amLODIPine BESYLATE 5 MG TABLET (FP) PO SCH ×2 (10:06→21:33)
[2020-11-16] MEDS: NICOTINE 21 MG/24 HOURS TOPICAL PATCH TD SCH (10:06)
[2020-11-16] MEDS: SUVOREXANT 10 MG TABLET PO PRN (21:33)
[2020-11-16] MEDS: MELATONIN 5 MG TABLETS PO SCH (21:33)
[2020-11-16] MEDS: THIAMINE HCL 100 MG TABLET (FP) PO SCH (21:33)
[2020-11-16] MEDS: LIDOCAINE PATCH REMOVAL MC SCH (21:34)
[2020-11-16] MEDS: CYCLOBENZAPRINE HCL 5 MG TABLET PO PRN (21:34)
[2020-11-17] MEDS: GABAPENTIN 300 MG CAPSULE PO SCH ×3 (06:51→21:06)
[2020-11-17] MEDS: amLODIPine BESYLATE 5 MG TABLET (FP) PO SCH ×2 (09:57→21:06)
[2020-11-17] MEDS: ESCITALOPRAM OXALATE 10 MG TABLET PO SCH (09:57)
[2020-11-17] MEDS: PRENATAL VITAMINS W/ FOLIC ACID TABLET (FP) PO SCH (09:57)
[2020-11-17] MEDS: CYCLOBENZAPRINE HCL 5 MG TABLET PO PRN (09:58)
[2020-11-17] MEDS: FLUTICASONE PROP 0.05% 16 GM NASAL SPRAY NS SCH (09:58)
[2020-11-17] MEDS: LIDOCAINE 5% TOPICAL PATCH TP SCH (09:58)
[2020-11-17] MEDS: NICOTINE 21 MG/24 HOURS TOPICAL PATCH TD SCH (09:58)
[2020-11-17] MEDS: ALBUTEROL SO4 HFA INHALER IH PRN (09:58)
[2020-11-17] MEDS: hydrOXYzine PAMOATE 25 MG CAPSULE (FP) PO PRN ×3 (09:58→18:08)
[2020-11-17] MEDS: NICOTINE 10 MG CARTRIDGE (INHALER) IH PRN (16:49)
[2020-11-17] MEDS: THIAMINE HCL 100 MG TABLET (FP) PO SCH (21:05)
[2020-11-17] MEDS: MELATONIN 5 MG TABLETS PO SCH (21:06)
[2020-11-17] MEDS: IBUPROFEN 600 MG TABLET (FP) PO PRN (21:08)
[2020-11-17] MEDS: SUVOREXANT 10 MG TABLET PO PRN (21:08)
[2020-11-17] MEDS: LIDOCAINE PATCH REMOVAL MC SCH (21:09)
[2020-11-18] MEDS: GABAPENTIN 300 MG CAPSULE PO SCH ×3 (06:09→21:21)
[2020-11-18] MEDS: hydrOXYzine PAMOATE 25 MG CAPSULE (FP) PO PRN ×4 (06:43→21:22)
[2020-11-18] MEDS: ESCITALOPRAM OXALATE 10 MG TABLET PO SCH (10:10)
[2020-11-18] MEDS: NICOTINE 21 MG/24 HOURS TOPICAL PATCH TD SCH (10:10)
[2020-11-18] MEDS: amLODIPine BESYLATE 5 MG TABLET (FP) PO SCH ×2 (10:10→21:21)
[2020-11-18] MEDS: IBUPROFEN 600 MG TABLET (FP) PO PRN (10:12)
[2020-11-18] MEDS: PRENATAL VITAMINS W/ FOLIC ACID TABLET (FP) PO SCH (10:13)
[2020-11-18] MEDS: LIDOCAINE 5% TOPICAL PATCH TP SCH (10:13)
[2020-11-18] MEDS: ALBUTEROL SO4 HFA INHALER IH PRN ×3 (10:13→21:22)
[2020-11-18] MEDS: FLUTICASONE PROP 0.05% 16 GM NASAL SPRAY NS SCH (10:13)
[2020-11-18] MEDS: NICOTINE 10 MG CARTRIDGE (INHALER) IH PRN (10:14)
[2020-11-18] MEDS: MELATONIN 5 MG TABLETS PO SCH (21:21)
[2020-11-18] MEDS: THIAMINE HCL 100 MG TABLET (FP) PO SCH (21:21)
[2020-11-18] MEDS: SUVOREXANT 10 MG TABLET PO PRN (21:22)
[2020-11-18] MEDS: LIDOCAINE PATCH REMOVAL MC SCH (21:22)
[2020-11-19] MEDS: GABAPENTIN 300 MG CAPSULE PO SCH ×3 (06:16→21:04)
[2020-11-19] MEDS: hydrOXYzine PAMOATE 25 MG CAPSULE (FP) PO PRN ×3 (07:01→19:04)
[2020-11-19] MEDS: amLODIPine BESYLATE 5 MG TABLET (FP) PO SCH ×2 (09:38→21:04)
[2020-11-19] MEDS: PRENATAL VITAMINS W/ FOLIC ACID TABLET (FP) PO SCH (09:38)
[2020-11-19] MEDS: FLUTICASONE PROP 0.05% 16 GM NASAL SPRAY NS SCH (09:38)
[2020-11-19] MEDS: NICOTINE 21 MG/24 HOURS TOPICAL PATCH TD SCH (09:38)
[2020-11-19] MEDS: ESCITALOPRAM OXALATE 10 MG TABLET PO SCH (09:38)
[2020-11-19] MEDS: ALBUTEROL SO4 HFA INHALER IH PRN ×2 (09:38→13:55)
[2020-11-19] MEDS: LIDOCAINE 5% TOPICAL PATCH TP SCH (10:00)
[2020-11-19] MEDS ORDERED: ASPIRIN 81 MG CHEWABLE TABLETS PO ONE (10:15)
[2020-11-19] MEDS: ACETAMINOPHEN 325 MG TABLET (FP) PO PRN (11:01)
[2020-11-19] MEDS: NICOTINE 10 MG CARTRIDGE (INHALER) IH PRN (19:05)
[2020-11-19] MEDS: THIAMINE HCL 100 MG TABLET (FP) PO SCH (21:04)
[2020-11-19] MEDS: MELATONIN 5 MG TABLETS PO SCH (21:04)
[2020-11-19] MEDS: LIDOCAINE PATCH REMOVAL MC SCH (21:05)
[2020-11-19] MEDS: SUVOREXANT 10 MG TABLET PO PRN (21:05)
[2020-11-20] MEDS: GABAPENTIN 300 MG CAPSULE PO SCH ×3 (06:35→21:07)
[2020-11-20] MEDS: hydrOXYzine PAMOATE 25 MG CAPSULE (FP) PO PRN ×4 (06:35→21:07)
[2020-11-20] MEDS: PRENATAL VITAMINS W/ FOLIC ACID TABLET (FP) PO SCH (09:35)
[2020-11-20] MEDS: ESCITALOPRAM OXALATE 10 MG TABLET PO SCH (09:35)
[2020-11-20] MEDS: IBUPROFEN 600 MG TABLET (FP) PO PRN ×2 (09:36→18:02)
[2020-11-20] MEDS: amLODIPine BESYLATE 5 MG TABLET (FP) PO SCH ×2 (09:36→21:07)
[2020-11-20] MEDS: NICOTINE 10 MG CARTRIDGE (INHALER) IH PRN ×2 (09:37→18:04)
[2020-11-20] MEDS: NICOTINE 21 MG/24 HOURS TOPICAL PATCH TD SCH (09:37)
[2020-11-20] MEDS: LIDOCAINE 5% TOPICAL PATCH TP SCH (09:37)
[2020-11-20] MEDS: FLUTICASONE PROP 0.05% 16 GM NASAL SPRAY NS SCH (10:26)
[2020-11-20] MEDS: ALBUTEROL SO4 HFA INHALER IH PRN (16:01)
[2020-11-20] MEDS: THIAMINE HCL 100 MG TABLET (FP) PO SCH (21:07)
[2020-11-20] MEDS: MELATONIN 5 MG TABLETS PO SCH (21:08)
[2020-11-20] MEDS: LIDOCAINE PATCH REMOVAL MC SCH (21:08)
[2020-11-20] MEDS: SUVOREXANT 10 MG TABLET PO PRN (21:25)
[2020-11-21] MEDS: GABAPENTIN 300 MG CAPSULE PO SCH (06:56)
[2020-11-21] MEDS: hydrOXYzine PAMOATE 25 MG CAPSULE (FP) PO PRN (06:57)
[2020-11-21 07:15] VITALS: BP 138/84; PULSE 79; TEMP 98.1
== END 2020-11-21 08:40 | disposition home or self-care (01) | DRG 772 ==
LOC: YASAS 12:36 → Y3W 12:37
PROVIDERS: ADMIT Allergy & Immunology; ATTEND Allergy & Immunology
PROC: HZ42ZZZ Group Counseling for Substance Abuse Treatment, Cognitive-Behavioral (ICD-10-PCS; principal; 2020-11-01)
DX: F10.20 Alcohol dependence, uncomplicated (principal); F13.20 Sedative, hypnotic or anxiolytic dependence, uncomplicated; F14.20 Cocaine dependence, uncomplicated; F17.210 Nicotine dependence, cigarettes, uncomplicated; F19.24 Other psychoactive substance dependence with psychoactive substance-induced mood disorder; F19.282 Other psychoactive substance dependence with psychoactive substance-induced sleep disorder; F33.9 Major depressive disorder, recurrent, unspecified; I10 Essential (primary) hypertension; R07.0 Pain in throat; R09.81 Nasal congestion; G62.9 Polyneuropathy, unspecified; M54.59 Other low back pain; G89.29 Other chronic pain; G91.9 Hydrocephalus, unspecified; Z56.0 Unemployment, unspecified; Z59.00 Homelessness unspecified
CPT/HCPCS: 87070; 93005; 93010